=== PATIENT | female | born 1965 | race Caucasian/White ===

== ENCOUNTER 2017-11-09 18:12 | Emergency (ER) | payer OTHER ==
[2017-11-09 18:21] VITALS: BP 153/81; PULSE 88; TEMP 98.4; BMI 33.9
[2017-11-09] MEDS ORDERED: IBUPROFEN 600 MG TABLET (FP) PO ONE (18:22)
--- NOTE | 2017-11-09 18:22 | PDOC ---
Rapid Medical Evaluation Time Seen by Provider: 11/09/17 18:20 Medical Evaluation: Allergies Allergy/AdvReac Type Severity Reaction Status Date / Time azithromycin AdvReac Nausea Verified 11/09/17 18:18 codeine AdvReac Nausea Verified 11/09/17 18:18 11/09/17 18:20 I have performed a brief in person evaluation of this patient. The patient presents with chief complaint of : left elbow pain after moving a machine at work unable to straighten completely Pertinent PE findings: left elbow tender to touch to the lateral aspect, limited ROM due to pain I have ordered the following: motrin 600mg xray left elbow The patient will proceed to the ER for further evaluation.
--- NOTE | 2017-11-09 18:48 | PDOC ---
History of Present Illness - General Chief Complaint: Pain Stated Complaint: LT ELBOW INJURY Time Seen by Provider: 11/09/17 18:20 History Source: Patient Exam Limitations: No Limitations - History of Present Illness Initial Comments: 11/09/17 18:57 52-year-old female presents to the emergency room with complaints of left elbow pain while at work here at [employer]. 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 Patient denies recent injury to the affected area, deformity, or weakness of the left upper extremity. Patient does complaints of tingling to her lower bicep and upper forearm. Severity: moderate Associated Symptoms: reports: denies symptoms Past History - Travel Traveled outside of the country in the last 30 days: No - Past Medical History Allergies/Adverse Reactions: Allergies Allergy/AdvReac Type Severity Reaction Status Date / Time azithromycin AdvReac Nausea Verified 11/09/17 18:18 codeine AdvReac Nausea Verified 11/09/17 18:18 Home Medications: Ambulatory Orders Atorvastatin Ca [Lipitor -] 20 mg PO ASDIR 03/11/15 Protriptyline HCl 5 mg PO DAILY 03/11/15 Telmisartan [Micardis] 80 mg PO DAILY 03/11/15 Eletriptan Hydrobromide [Relpax -] 20 mg PO ASDIR PRN 05/11/16 Nadolol 20 mg PO DAILY 05/11/16 Amlodipine Besylate [Norvasc -] 5 mg PO DAILY 10/19/16 Cardiac Disorders: Yes (SVT) COPD: No HTN: Yes Hypercholesterolemia: Yes - Suicide/Smoking/Psychosocial Hx Smoking Status: No Smoking History: Never smoked Have you smoked in the past 12 months: No Number of Cigarettes Smoked Daily: 0 Hx Alcohol Use: No Drug/Substance Use Hx: No Substance Use Type: None Hx Substance Use Treatment: No Review of Systems - Review of Systems Able to Perform ROS?: Yes Constitutional: No: Symptoms Reported Musculoskeletal: Yes: Joint Pain (left elbow) Neurological: Yes: Tingling (left elbow) *Physical Exam - Vital Signs Last Vital Signs Temp Pulse Resp BP Pulse Ox 98.4 F 88 19 153/81 98 11/09/17 18:18 11/09/17 18:18 11/09/17 18:18 11/09/17 18:18 11/09/17 18:18 - Physical Exam General Appearance: Yes: Nourished, Appropriately Dressed. No: Apparent Distress Extremity: positive: Normal Capillary Refill, Normal Inspection, Normal Range of Motion, Tender (epicondyle notch. no crepitus with movement. no deformity) Neurologic: positive: Motor Strength 5/5 (left upper extremity) ED Treatment Course - Medications Given in the ED: ED Medications Discontinued Medications Generic Name Dose Route Start Last Admin Trade Name Jie PRN Reason Stop Dose Admin Ibuprofen 600 mg 11/09/17 18:22 11/09/17 18:26 Motrin - PO 11/09/17 18:23 600 mg ONCE ONE Administration Medical Decision Making - Medical Decision Making 11/09/17 19:00 Patient withcomplaints of left elbow pain while pushing a ventilator machine. Patient on exam had tenderness over epicondyle notch. no paplable deformity or crepitus upon movement. x-ray ordered in [facility] 11/09/17 19:02 X-ray negative for acute findings. Patient be placed in a sling. Patient also given referral to orthopedic if pain continues greater than 5 days. *DC/Admit/Observation/Transfer Diagnosis at time of Disposition: Strain of left elbow Qualifiers: Encounter type: initial encounter Qualified Code(s): S56.912A - Strain of unspecified muscles, fascia and tendons at forearm level, left arm, initial encounter - Discharge Dispostion Disposition: HOME Condition at time of disposition: Good - Referrals Referrals: Ender Hussein MD [Primary Care Provider] - Adam Espana MD [Staff Physician] - - Patient Instructions Printed Discharge Instructions: How to Use a Sling Additional Instructions: Apply ice to the affected areas as much as possible for the next 3 days and take Motrin every 6-8 hours. Use sling during the day but remove at night. - Post Discharge Activity
== END 2017-11-09 19:11 | disposition home or self-care (01) ==
LOC: JERFT 18:12
DX: S56.812A Strain of other muscles, fascia and tendons at forearm level, left arm, initial encounter (principal); X50.9XXA Other and unspecified overexertion or strenuous movements or postures, initial encounter; Y93.F9 Activity, other caregiving; Y92.238 Other place in hospital as the place of occurrence of the external cause; Y99.0 Civilian activity done for income or pay; I10 Essential (primary) hypertension; E78.00 Pure hypercholesterolemia, unspecified; Z86.79 Personal history of other diseases of the circulatory system
CPT/HCPCS: 73070-TC-LT; 99281-25

== ENCOUNTER 2019-02-28 14:48 | Emergency (ER) | payer OTHER ==
[2019-02-28 14:57] VITALS: BP 124/69; PULSE 79; TEMP 97.5; BMI 27.4
--- NOTE | 2019-02-28 14:59 | PDOC ---
Rapid Medical Evaluation Chief Complaint: Back Pain Time Seen by Provider: 02/28/19 14:55 Medical Evaluation: Allergies Allergy/AdvReac Type Severity Reaction Status Date / Time azithromycin AdvReac Nausea Verified 02/28/19 14:54 codeine AdvReac Nausea Verified 02/28/19 14:54 02/28/19 14:56 I have performed a brief in-person evaluation of this patient. 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 Patient took 1000mg PO for the pain without improvement Pertinent physical exam findings: diffused tenderness to b/l lumbosacral region I have ordered the following: nothing . deferred The patient will proceed to the ED for further evaluation. 02/28/19 14:59 Discharge Disposition - Diagnosis Lumbago Qualifiers: Chronicity: acute Back pain laterality: bilateral Sciatica presence: without sciatica Qualified Code(s): M54.5 - Low back pain - Discharge Dispostion Condition at time of disposition: Stable - Referrals - Patient Instructions - Post Discharge Activity
--- NOTE | 2019-02-28 15:28 | PDOC ---
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 He has frequent problems with her low and thoracic back that has been well controlled with exercise and occasional NSAID. And eyes numbness or tingling to feet, denies any problems with bowel or bladder Pain Location: reports: back Method of Injury: Yes: other (heavy lifting) Modifying Factors: improves with: None Loss of Consciousness: no loss of consciousness Associated Symptoms (Fall): denies symptoms Past History - Travel Traveled outside of the country in the last 30 days: No Close contact w/someone who was outside of country & ill: No - Past Medical History Allergies/Adverse Reactions: Allergies Allergy/AdvReac Type Severity Reaction Status Date / Time azithromycin AdvReac Nausea Verified 02/28/19 14:54 codeine AdvReac Nausea Verified 02/28/19 14:54 Home Medications: Ambulatory Orders Atorvastatin Ca [Lipitor -] 20 mg PO ASDIR 03/11/15 Protriptyline HCl 5 mg PO DAILY 03/11/15 Telmisartan [Micardis] 80 mg PO DAILY 03/11/15 Eletriptan Hydrobromide [Relpax -] 20 mg PO ASDIR PRN 05/11/16 Nadolol 20 mg PO DAILY 05/11/16 Amlodipine Besylate [Norvasc -] 5 mg PO DAILY 10/19/16 Cyclobenzaprine HCl 10 mg PO Q8H PRN #30 tablet 02/28/19 Naproxen [Naprosyn -] 500 mg PO BID #30 tablet 02/28/19 Cardiac Disorders: Yes (SVT) COPD: No HTN: Yes Hypercholesterolemia: Yes - Suicide/Smoking/Psychosocial Hx Smoking Status: No Smoking History: Never smoked Have you smoked in the past 12 months: No Number of Cigarettes Smoked Daily: 0 Information on smoking cessation initiated: No Hx Alcohol Use: No Drug/Substance Use Hx: No Substance Use Type: None Hx Substance Use Treatment: No Trauma Specific PMHX - Complaint Specific PMHX Arthritis: No Review of Systems - Review of Systems Able to Perform ROS?: Yes Is the patient limited Armenian proficient: Yes Constitutional: Yes: Symptoms Reported, See HPI, Malaise. No: Fever HEENTM: Yes: See HPI. No: Symptoms Reported Musculoskeletal: Yes: Symptoms Reported, See HPI, Back Pain, Muscle Pain All Other Systems: Reviewed and Negative *Physical Exam - Vital Signs Last Vital Signs Temp Pulse Resp BP Pulse Ox 97.5 F L 79 18 124/69 98 02/28/19 14:54 02/28/19 14:54 02/28/19 14:54 02/28/19 14:54 02/28/19 14:54 - Physical Exam General Appearance: Yes: Nourished, Appropriately Dressed, Apparent Distress, Mild Distress, Moderate Distress HEENT: positive: SHENG, Normal ENT Inspection, TMs Normal, Pharynx Normal Neck: positive: Supple. negative: Tender Respiratory/Chest: positive: Normal Breath Sounds Gastrointestinal/Abdominal: positive: Normal Bowel Sounds, Soft. negative: Tender Musculoskeletal: positive: Normal Inspection, Decreased Range of Motion, Muscle Spasm (tight tense musculature to the paravertebral spinous muscles along thoracic and lumbar spine, worse on the right than the left. Has no true spine or bone tenderness, but range of motion is limited secondary to the spasm.). negative: CVA Tenderness (L), Vertebral Tenderness Extremity: positive: Normal Capillary Refill. negative: Normal Range of Motion Integumentary: positive: Normal Color, Dry, Warm Neurologic: positive: marketing outreach coordinator II-XII NML intact, Fully Oriented, Alert, Normal Mood/ Affect, Normal Response, Motor Strength 5/5 Progress Note - Progress Note Progress Note: Low back strain/spasm. We'll treat with NSAIDs and cyclobenzaprine *DC/Admit/Observation/Transfer Diagnosis at time of Disposition: Low back strain Qualifiers: Encounter type: initial encounter Qualified Code(s): S39.012A - Strain of muscle, fascia and tendon of lower back, initial encounter - Discharge Dispostion Disposition: HOME Condition at time of disposition: Stable Decision to Admit order: No - Prescriptions Prescriptions: Cyclobenzaprine HCl 10 mg PO Q8H PRN #30 tablet PRN Reason: spasm Naproxen [Naprosyn -] 500 mg PO BID #30 tablet - Referrals Referrals: Ender Hussein MD [Staff Physician] - - Patient Instructions Printed Discharge Instructions: DI for Low Back Pain Additional Instructions: Rest, no heavy lifting or exercise until pain is resolved Hot soaks to neck and low back as often as possible/hot showers or Jacuzzis No massage or therapy until spasm is gone Continue Naprosyn 500 mg tablet, 1 tablet every 8 hours for the next 3 days then as needed for pain and swelling Cyclobenzaprine 1-10mg every 8 hours as needed for spasm If not significant improvement within 24 hours with medication and rest regime, followup with private physician for change in medications and /or therapy. - Post Discharge Activity Forms/Work/School Notes: Back to Work
== END 2019-02-28 15:44 | disposition home or self-care (01) ==
LOC: JERFT 14:48
DX: S39.012A Strain of muscle, fascia and tendon of lower back, initial encounter (principal); X50.9XXA Other and unspecified overexertion or strenuous movements or postures, initial encounter; Y93.F9 Activity, other caregiving; Y92.238 Other place in hospital as the place of occurrence of the external cause; Y99.0 Civilian activity done for income or pay; I10 Essential (primary) hypertension; E78.00 Pure hypercholesterolemia, unspecified; Z86.79 Personal history of other diseases of the circulatory system
CPT/HCPCS: 99281-25

== ENCOUNTER 2019-12-01 17:41 | Emergency (ER) | payer OTHER ==
[2019-12-01 17:52] VITALS: BP 132/76; PULSE 73; TEMP 98; BMI 34.1
--- NOTE | 2019-12-01 18:14 | PDOC ---
History of Present Illness - General Chief Complaint: Respiratory Stated Complaint: POSSIBLE FLU, CHEST PAIN Time Seen by Provider: 12/01/19 17:54 History Source: Patient Exam Limitations: Clinical Condition - History of Present Illness Initial Comments: 12/01/19 18:09 Patient with past medical history of multiple comorbidities and asthma presented with complaint of nasal congestion, body aches and malaise since this morning and wants to make sure she does not have the flu. 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 Denies taking any antipyretics. Reported intermittent nasal and chest congestion denies fevers, nausea, vomiting , palpitation, shortness of breath. Denies any other symptoms. Is this a multiple visit Asthma Patient?: No Timing/Duration: 4-6 hours Past History - Past Medical History Allergies/Adverse Reactions: Allergies Allergy/AdvReac Type Severity Reaction Status Date / Time azithromycin AdvReac Nausea Verified 12/01/19 17:52 codeine AdvReac Nausea Verified 12/01/19 17:52 Home Medications: Ambulatory Orders Atorvastatin Ca [Lipitor -] 20 mg PO ASDIR 03/11/15 Protriptyline HCl 5 mg PO DAILY 03/11/15 Telmisartan [Micardis] 80 mg PO DAILY 03/11/15 Eletriptan Hydrobromide [Relpax -] 20 mg PO ASDIR PRN 05/11/16 Nadolol 20 mg PO DAILY 05/11/16 Amlodipine Besylate [Norvasc -] 5 mg PO DAILY 10/19/16 Cyclobenzaprine HCl 10 mg PO Q8H PRN #30 tablet 02/28/19 Naproxen [Naprosyn -] 500 mg PO BID #30 tablet 02/28/19 Benzonatate [Tessalon Pearls -] 100 mg PO Q8H PRN #21 capsule 12/01/19 Cardiac Disorders: Yes (SVT) COPD: No HTN: Yes Hypercholesterolemia: Yes - Psycho Social/Smoking Cessation Hx Smoking Status: No Smoking History: Never smoked Have you smoked in the past 12 months: No Number of Cigarettes Smoked Daily: 0 Hx Alcohol Use: No Drug/Substance Use Hx: No Substance Use Type: None Hx Substance Use Treatment: No Review of Systems - Review of Systems Able to Perform ROS?: Yes Is the patient limited Kyrgyz proficient: No Constitutional: Yes: Chills, Malaise. No: Fever HEENTM: Yes: Symptoms Reported, See HPI, Nose Congestion. No: Eye Pain, Blurred Vision, Tearing, Recent change in vision, Double Vision, Cataracts, Ear Pain, Ocular Prothesis, Ear Discharge, Nose Pain, Tinnitus, Nose Bleeding, Hearing Loss, Throat Pain, Throat Swelling, Mouth Pain, Dental Problems, Difficulty Swallowing, Mouth Swelling, Other Respiratory: Yes: Symptoms reported, See HPI, Cough. No: Orthopnea, Shortness of Breath, SOB with Exertion, SOB at Rest, Stridor, Wheezing, Productive cough, Hemoptysis, Other Cardiac (ROS): No: Symptoms Reported, See HPI, Chest Pain, Edema, Irregular Heart Rate, Lightheadedness, Palpitations, Syncope, Chest Tightness, Other ABD/GI: No: Symptoms Reported, See HPI, Abd. Pain w/ defecation, Constipated, Diarrhea, Difficulty Swallowing, Nausea, Rectal Bleeding, Vomiting, Abdominal cramping : No: Symptoms Reported Musculoskeletal: No: Symptoms Reported Integumentary: No: Symptoms Reported, Rash Neurological: No: Symptoms reported, Ataxia, Dizziness All Other Systems: Reviewed and Negative *Physical Exam - Vital Signs Last Vital Signs Temp Pulse Resp BP Pulse Ox 98 F 73 18 132/76 99 12/01/19 17:49 12/01/19 17:49 12/01/19 17:49 12/01/19 17:49 12/01/19 17:49 - Physical Exam 12/01/19 18:14 GENERAL: Well developed, well nourished. Awake and alert. No acute distress. HEENT: Normocephalic, atraumatic. PERRLA, EOMI. No conjunctival pallor. Sclera are non-icteric. Moist mucous membranes. Oropharynx is clear. NECK: Supple. Full ROM. CARDIOVASCULAR: Regular rate and rhythm. No murmurs, rubs, or gallops. Distal pulses are 2+ and symmetric. PULMONARY: No evidence of respiratory distress. Lungs clear to auscultation bilaterally. No wheezing, rales or rhonchi. ABDOMINAL: Soft. Non-tender. Non-distended. No rebound or guarding. No organomegaly. Normoactive bowel sounds. MUSCULOSKELETAL Normal range of motion at all joints. SKIN: Warm and dry. Normal capillary refill. No rashes. No jaundice. NEUROLOGICAL: Alert, awake, appropriate. Gait is normal without ataxia. PSYCHIATRIC: Cooperative. Good eye contact. Appropriate mood General Appearance: Yes: Nourished, Appropriately Dressed. No: Apparent Distress Medical Decision Making - Medical Decision Making 12/01/19 18:13 Patient with past medical history of multiple comorbidities and asthma presented with complaint of nasal congestion, body aches and malaise since this morning and wants to make sure she does not have the flu. 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 Denies taking any antipyretics. Reported intermittent nasal and chest congestion denies fevers, nausea, vomiting , palpitation, shortness of breath. Denies any other symptoms. Patient is unremarkable with lungs clear to auscultation bilateral patient no acute distress. Patient afebrile. Symptoms likely viral URI. As per patient request will test for influenza to rule out influenza 12/01/19 18:35 Rapid flu negative for influenza. Patient symptoms likely viral URI with intermittent asthma exacerbation. Patient stable for discharge on Tessalon Perles as needed for cough with advised to continue home Ventolin inhaler as needed for asthma and antihistamine medication as prescribed with advised to increase fluid intake and follow-up with primary care as needed Discharge - Discharge Information Problems reviewed: Yes Clinical Impression/Diagnosis: URI, acute Asthma Qualifiers: Asthma severity: mild Asthma persistence: intermittent Asthma complication type : uncomplicated Qualified Code(s): J45.20 - Mild intermittent asthma, uncomplicated Condition: Stable Disposition: HOME - Admission No - Additional Discharge Information Prescriptions: Benzonatate [Tessalon Pearls -] 100 mg PO Q8H PRN #21 capsule PRN Reason: Cough - Follow up/Referral - Patient Discharge Instructions Patient Printed Discharge Instructions: DI for Viral Upper Respiratory Infection -- Adult Additional Instructions: Flu test is negative. Symptoms likely viral upper respiratory infection. Continue with home nebulizer as needed for chest tightness and wheezing. Increase fluid intake. Follow-up with primary care as needed - Post Discharge Activity
== END 2019-12-01 18:35 | disposition home or self-care (01) ==
LOC: JERFT 17:41
DX: J06.9 Acute upper respiratory infection, unspecified (principal); B97.89 Other viral agents as the cause of diseases classified elsewhere; J45.20 Mild intermittent asthma, uncomplicated; I10 Essential (primary) hypertension; E78.00 Pure hypercholesterolemia, unspecified; Z86.79 Personal history of other diseases of the circulatory system; Z88.5 Allergy status to narcotic agent; Z88.1 Allergy status to other antibiotic agents
CPT/HCPCS: 87804; 99283-25

== ENCOUNTER 2020-09-25 12:12 | Emergency (ER) | payer OTHER ==
[2020-09-25 12:20] VITALS: BP 154/61; PULSE 57; TEMP 97.7; BMI 34.9
== END 2020-09-25 13:08 | disposition home or self-care (01) ==
LOC: JERFT 12:12
DX: M79.672 Pain in left foot (principal)
CPT/HCPCS: 73630-TC-LT; 99283-25

== ENCOUNTER → 2022-01-25 | Day surgery (SDC) | payer OTHER | END | disposition home or self-care (01) | LOC: JRADIR 09:26 | PROVIDERS: ATTEND Internal Medicine Endocrinology, Diabetes & Metabolism | PROC: 0G9G3ZX Drainage of Left Thyroid Gland Lobe, Percutaneous Approach, Diagnostic (ICD-10-PCS; principal; 2022-01-25) | DX: E04.1 Nontoxic single thyroid nodule (principal) | CPT/HCPCS: 10005; 76942; 88173; 88305-TC ==

== ENCOUNTER → 2023-02-13 | Day surgery (SDC) | payer OTHER | END | disposition home or self-care (01) | LOC: JRADIR 10:06 | PROVIDERS: ATTEND Internal Medicine Endocrinology, Diabetes & Metabolism | PROC: 0G9K3ZX Drainage of Thyroid Gland, Percutaneous Approach, Diagnostic (ICD-10-PCS; principal; 2023-02-13) | DX: E07.9 Disorder of thyroid, unspecified (principal) | CPT/HCPCS: 10005; 76942 ==

== ENCOUNTER 2023-05-05 05:37 | Day surgery (SDC) | payer OTHER ==
[2023-05-04 11:04] VITALS: BMI 36.6
[2023-05-05 14:19] VITALS: TEMP 97.5
[2023-05-05 14:22] VITALS: BP 109/60; PULSE 51; RESP 12
== END 2023-05-05 12:15 | disposition home or self-care (01) ==
LOC: JASU-ENDO 05:37
PROVIDERS: ATTEND Internal Medicine Gastroenterology
PROC: 0DBP8ZX Excision of Rectum, Via Natural or Artificial Opening Endoscopic, Diagnostic (ICD-10-PCS; 2023-05-05)
PROC: 0DBK8ZX Excision of Ascending Colon, Via Natural or Artificial Opening Endoscopic, Diagnostic (ICD-10-PCS; principal; 2023-05-05 10:30)
DX: Z12.11 Encounter for screening for malignant neoplasm of colon (principal); D12.2 Benign neoplasm of ascending colon; D12.8 Benign neoplasm of rectum; K57.30 Diverticulosis of large intestine without perforation or abscess without bleeding; Z80.0 Family history of malignant neoplasm of digestive organs; I10 Essential (primary) hypertension
CPT/HCPCS: 82962; 88305-TC

== ENCOUNTER 2023-05-11 05:09 | Day surgery (SDC) | payer OTHER ==
[2023-05-08 11:45] VITALS: BMI 35.7
[~2023-05-11 05:09] MED LIST: BUPIVACAINE HCL/PF 0.5% (5MG/ML) 10 ML VIAL IJ ONE; LIDOCAINE 1%/EPI 1:100000 (20 ML MULTI DOSE VIAL) IJ ONE; ceFAZolin SODIUM 1 GM VIAL IVPB ONE
[2023-05-11] MEDS ORDERED: ONDANSETRON 4 MG/2 ML VIAL IVPUSH PRN (11:45)
[2023-05-11] MEDS ORDERED: ACETAMINOPHEN 325 MG TABLET (FP) PO PRN (11:45)
[2023-05-11] MEDS ORDERED: LACTATED RINGERS SOLUTION 1,000 ML IV SCH (11:45)
[2023-05-11] MEDS ORDERED: oxyCODONE HCL 5 MG TABLET PO PRN (11:45)
[2023-05-11] MEDS ORDERED: PROPOFOL 20 ML ONE (12:16)
[2023-05-11] MEDS ORDERED: MIDAZOLAM HCL 2 MG/2 ML SINGLE DOSE VIAL ONE (12:16)
[2023-05-11] MEDS ORDERED: SUCCINYLCHOLINE CHLORIDE 200 MG/10 ML SYRINGE ONE (12:16)
[2023-05-11] MEDS ORDERED: ceFAZolin SODIUM 1 GM VIAL IVPB ONE (12:58)
[2023-05-11] MEDS ORDERED: BUPIVACAINE HCL/PF 0.5% (5MG/ML) 10 ML VIAL IJ ONE (13:13)
[2023-05-11] MEDS ORDERED: LIDOCAINE 1%/EPI 1:100000 (20 ML MULTI DOSE VIAL) IJ ONE (13:14)
[2023-05-11] MEDS ORDERED: MICROFIBRILLAR COLLAGEN 1 GM EACH TP ONE (14:04)
[2023-05-11] MEDS ORDERED: ACETAMINOPHEN INJECTION 100 ML IVPB ONE (14:39)
[2023-05-11] MEDS ORDERED: ACETAMINOPHEN 1000 MG/100 ML BAG IVPB ONE (15:14)
[2023-05-11] MEDS ORDERED: ONDANSETRON 4 MG/2 ML VIAL ONE (15:49)
[2023-05-11 16:28] VITALS: PULSE 55; RESP 18; TEMP 97.2
[2023-05-11] MEDS ORDERED: CALCIUM CARBONATE 650 MG TABLET PO ONE (17:14)
[2023-05-11 17:39] VITALS: BP 117/63
[2023-05-12] MEDS ORDERED: CALCITRIOL 1 MCG/ML BOT PO ONE (17:13)
== END 2023-05-11 17:57 | disposition home or self-care (01) ==
LOC: JASU-SURG 05:09
PROVIDERS: ATTEND Surgery
PROC: 0GSR0ZZ Reposition Parathyroid Gland, Open Approach (ICD-10-PCS; 2023-05-11)
PROC: 0GTK0ZZ Resection of Thyroid Gland, Open Approach (ICD-10-PCS; principal; 2023-05-11 12:00)
DX: C73 Malignant neoplasm of thyroid gland (principal)
CPT/HCPCS: 82962; 86850; 86900; 86901; 88304-TC; 88307-TC; 94760